=== PATIENT | male | born 1955 | race American Indian/Alaskan Native ===

== ENCOUNTER 2018-04-27 13:41 | Emergency (ER) | payer MEDICARE ==
[2018-04-27] MEDS ORDERED: MOTRIN PO ONE (15:56)
[2018-04-27] MEDS ORDERED: PERCOCET 5/325 PO ONE (15:56)
--- NOTE | 2018-04-27 16:31 | Emergency Department Report ---
ED Back Pain/Injury HPI - General Chief Complaint: Back Pain/Injury Stated Complaint: BACK PAIN Time Seen by Provider: 04/27/18 15:31 Source: patient, EMS Limitations: No Limitations - History of Present Illness Initial Comments: 62-year-old male past medical history drug abuse including cocaine and marijuana , diabetes, [place], hypertension, high cholesterol, sciatica, lower back surgery presents with complaint of lower back pain since yesterday. Patient states she suffers from chronic lower back pain but it worsened yesterday after he had a fall at home. Patient states he slipped and fell backward onto his lower back. Patient states pain is severe at this moment. Denies any bladder or bowel incontinence. Denies active illicit drug use. States the pain does radiate down his right leg intermittently. Patient states he had back surgery at [facility] in [place]. Complaint: back pain Onset/Timin -: days(s) Place: home Radiation: buttocks Severity: severe Severity scale (0 -10): 8 Quality: sharp, aching Consistency: constant Improves With: immobilization, supine Worsens With: movement Context: while lifting, turning/twisting, bending, fall Associated Symptoms: other (right lateral leg numbness reported by patient) - Related Data Allergies Allergy/AdvReac Type Severity Reaction Status Date / Time No Known Allergies Allergy Unverified 04/27/18 14:51 ED Review of Systems ROS: Stated complaint: BACK PAIN Other details as noted in HPI Constitutional: denies: chills, fever Eyes: denies: eye pain, eye discharge, vision change ENT: denies: ear pain, throat pain Respiratory: denies: cough, shortness of breath, wheezing Cardiovascular: denies: chest pain, palpitations Endocrine: no symptoms reported Gastrointestinal: denies: abdominal pain, nausea, diarrhea Genitourinary: denies: urgency, dysuria Musculoskeletal: back pain (chronic lower back pain). denies: joint swelling, arthralgia Skin: denies: rash, lesions Neurological: denies: headache, weakness, paresthesias Psychiatric: denies: anxiety, depression Hematological/Lymphatic: denies: easy bleeding, easy bruising ED Past Medical Hx - Past Medical History Previous Medical History?: Yes Hx Hypertension: Yes Hx Heart Attack/AMI: Yes Hx Diabetes: Yes Additional medical history: high cholesterol - Surgical History Past Surgical History?: Yes Additional Surgical History: Back surgery - Social History Smoking Status: Current Every Day Smoker Substance Use Type: Alcohol, Marijuana ED Physical Exam - General Limitations: No Limitations General appearance: alert, in no apparent distress - Head Head exam: Present: atraumatic, normocephalic - Eye Eye exam: Present: normal appearance, PERRL, EOMI - ENT ENT exam: Present: mucous membranes moist - Neck Neck exam: Present: normal inspection - Respiratory Respiratory exam: Present: normal lung sounds bilaterally. Absent: respiratory distress - Cardiovascular Cardiovascular Exam: Present: regular rate, normal rhythm. Absent: systolic murmur, diastolic murmur, rubs, gallop - GI/Abdominal GI/Abdominal exam: Present: soft, normal bowel sounds - Rectal Rectal exam: Present: deferred - Extremities Exam Extremities exam: Present: normal inspection - Back Exam Back exam: Present: normal inspection - Neurological Exam Neurological exam: Present: alert, oriented X3 - Expanded Neurological Exam Expanded Patient oriented to: Present: person, place, time Motor strength exam: RUE: 5, LUE: 5, RLE: 3, LLE: 5 Best Eye Response ([place]): (4) open spontaneously Best Motor Response ([place]): (6) obeys commands Best Verbal Response ([place]): (5) oriented Evangelist Total: 15 - Psychiatric Psychiatric exam: Present: normal affect, normal mood - Skin Skin exam: Present: warm, dry, intact, normal color. Absent: rash ED Course Vital Signs 04/27/18 04/27/18 14:51 17:53 Temperature 99 F 98 F Pulse Rate 78 69 Respiratory 20 16 Rate Blood Pressure 139/93 Blood Pressure 152/103 [Left] O2 Sat by Pulse 99 97 Oximetry ED Medical Decision Making - Medical Decision Making A/P: Lumbar compression fractures, acute fall injury 1-discussed with on-call [place] [facility] 1 patient to be transferred to [place] [facility] for evaluation by trauma team and neurosurgery case discussed with who accepted transfer 2-IV analgesia, nothing by mouth 3-case discussed with attending 4-patient in agreement with current clinical plan. Given nature of acute injury in context of fall with some neurological findings on exam patient must be evaluated by neurosurgery. Critical care attestation.: If time is entered above; I have spent that time in minutes in the direct care of this critically ill patient, excluding procedure time. ED Disposition Clinical Impression: Compression fracture of L2 lumbar vertebra Qualifiers: Encounter type: initial encounter Fracture type: closed Qualified Code(s): S32.020A - Wedge compression fracture of second lumbar vertebra, initial encounter for closed fracture Fall with significant injury Qualifiers: Encounter type: initial encounter Qualified Code(s): W19.XXXA - Unspecified fall, initial encounter Disposition: DC/TX-70 ANOTHER TYPE HLTHCARE Is pt being admited?: No Condition: Stable Referrals: PRIMARY CARE,MD [Primary Care Provider] - 3-5 Days
--- NOTE | 2018-04-27 17:10 | Cat Scan Report ---
FINAL REPORT EXAM: CT LUMBAR SPINE WO CON HISTORY: severe lower back pain s/p fall TECHNIQUE: CT of the lumbar spine was performed without intravenous contrast. Reconstruction were included in the coronal and sagittal planes. PRIORS: None. FINDINGS: There are five lumbar type vertebral bodies. Normal alignment. There recent compression fractures of the superior endplates of L2 and L3. There is 30 percent loss of height of both vertebral bodies. No retropulsion of fracture fragments. No spinal stenosis. No extension is seen into the posterior elements. The paravertebral soft tissues are normal. Posterior spinal fusion hardware is seen spanning L4 through S1. No evidence of hardware complication. Prior right L5 laminectomy is seen. L1/2: There is a small posterior disc bulge. No spinal canal stenosis. No neural foraminal narrowing. There is mild facet arthropathy. L2/3: There is a small diffuse posterior disc bulge. No spinal canal stenosis. No neural foraminal narrowing. There is mild facet arthropathy. L3/4: There is a mild diffuse posterior disc bulge. No spinal canal stenosis. No neural foraminal narrowing. There is moderate facet arthropathy. L4/5: There is a small posterior disc bulge with severe disc space loss. No spinal canal stenosis. No neural foraminal narrowing. There is mild facet arthropathy. L5/S1: There is severe disc space loss with a small posterior disc bulge. No spinal canal stenosis. There is mild to moderate bilateral neural foraminal narrowing. There is mild facet arthropathy. IMPRESSION: 1. Acute L2 and L3 compression fractures. Findings were discussed with Dr. Lee at 2:04 p.m. PST on 04/27/2018. 2. Intact L4 through S1 spinal fusion hardware. 3. Multilevel degenerative changes of the lumbar spine. Bilateral neural foraminal narrowing at L5-S1.
[2018-04-27] MEDS ORDERED: DILAUDID IM ONE (17:15)
[2018-04-27 17:53] VITALS: BP 152/103
[2018-04-27 17:57] LABS: Mucus,Urine FEW /HPF; WBC,Urine < 1.0 /HPF (0.0-6.0)
[2018-04-27 17:58] LABS: Bilirubin,Urine NEG (Negative); Blood,Urine NEG (Negative); Color,Urine Yellow (Yellow); Protein,Urine <15 mg/dL mg/dL (Negative); Urobilinogen,Urine < 2.0 mg/dL (<2.0)
[2018-04-27 18:19] LABS: Amphetamine Screen,Urine PRESUMPTIVE NEGATIVE; Benzodiazepines Screen,Urine PRESUMPTIVE NEGATIVE; Cannabinoid Screen,Urine PRESUMPTIVE NEGATIVE; Methadone Screen,Urine PRESUMPTIVE NEGATIVE; Opiate Screen,Urine PRESUMPTIVE NEGATIVE
[2018-04-27 18:30] LABS: Cocaine Screen,Urine PRESUMPTIVE POSITIVE
[2018-04-27] MEDS ORDERED: ZOFRAN ONE (18:43)
[2018-04-27] MEDS ORDERED: ZOFRAN IV ONE (18:54)
[2018-04-27] MEDS ORDERED: DILAUDID IV ONE (18:54)
[2018-04-27] MEDS ORDERED: NACL 0.9% 1000 ML 1,000 ML IV ONE (18:58)
[2018-04-27] MEDS ORDERED: D5NS 1,000 ML IV SCH (19:00)
[2018-04-27] MEDS ORDERED: D5NS 500 ML IV SCH (20:00)
== END 2018-04-27 19:49 | disposition other institution (70) ==
LOC: ED 13:41
DX: S32.020A Wedge compression fracture of second lumbar vertebra, initial encounter for closed fracture (principal); I10 Essential (primary) hypertension; I25.2 Old myocardial infarction; E11.9 Type 2 diabetes mellitus without complications; E78.00 Pure hypercholesterolemia, unspecified; F17.200 Nicotine dependence, unspecified, uncomplicated; F12.90 Cannabis use, unspecified, uncomplicated; W19.XXXA Unspecified fall, initial encounter; Y93.89 Activity, other specified; Y99.8 Other external cause status; Y92.009 Unspecified place in unspecified non-institutional (private) residence as the place of occurrence of the external cause
CPT/HCPCS: 72131; 80307; 81001; 82962; 96372; 96374; 96375; 99285; J1170; J2405

== ENCOUNTER 2018-05-15 16:08 | Emergency (ER) | payer MEDICARE ==
[2018-05-15 16:22] VITALS: BP 131/70
[2018-05-15] MEDS ORDERED: TORADOL IM ONE (17:10)
--- NOTE | 2018-05-15 17:13 | Emergency Department Report ---
ED Back Pain/Injury HPI - General Chief Complaint: Back Pain/Injury Stated Complaint: BACK PAIN FOR 3 WEEKS Time Seen by Provider: 05/15/18 17:05 Source: patient, EMS Limitations: No Limitations - History of Present Illness Initial Comments: Patient is a 62-year-old [place] male who is 3 weeks status post a fall with back fracture. Patient was transferred to [place] because of the possibility of spinal cord involvement however the patient did not need surgery on further evaluation. Patient still has significant pain his run out of his pain medicines. Patient is to see pain management in 3 days. Patient states pain is in the lower back with no radiation. Patient denies any bowel or bladder dysfunction at this time. Persistent pain is 10 out of 10. - Related Data Previous Rx's Medication Instructions Recorded Last Taken Type HYDROcodone/APAP 5-325 [[place] 1 each PO Q4HR PRN #12 tablet 05/15/18 Unknown Rx 5/325] Ibuprofen [Motrin] 800 mg PO Q8HR PRN #20 tablet 05/15/18 Unknown Rx methOCARBAMOL [Robaxin TAB] 500 mg PO Q6H PRN #15 tablet 05/15/18 Unknown Rx Allergies Allergy/AdvReac Type Severity Reaction Status Date / Time No Known Allergies Allergy Unverified 04/27/18 14:51 ED Review of Systems ROS: Stated complaint: BACK PAIN FOR 3 WEEKS Other details as noted in HPI Comment: All other systems reviewed and negative ED Past Medical Hx - Past Medical History high cholesterol, Chronic back pain ED Back Pain Physical Exam - Exam General: Vital signs noted. No distress. Alert and acting appropriately. Back/Abdomen: Yes Perilumbar Tenderness, No Abdominal Tenderness, No Perithoracic Tenderness, No Sacroiliac Tenderness, No Flank Tenderness, No Straight Leg Raise Pain Neuro: Yes Normal Sensation, Yes Normal DTR's, Yes Normal Gait, No Motor Weakness ED Course Vital Signs 05/15/18 16:18 Temperature 98.4 F Pulse Rate 72 Respiratory 20 Rate Blood Pressure 131/70 O2 Sat by Pulse 99 Oximetry Critical care attestation.: If time is entered above; I have spent that time in minutes in the direct care of this critically ill patient, excluding procedure time. ED Disposition Clinical Impression: Back pain Qualifiers: Back pain location: low back pain Chronicity: unspecified Back pain laterality : unspecified Sciatica presence: unspecified whether sciatica present Qualified Code(s): M54.5 - Low back pain Disposition: DC-01 TO HOME OR SELFCARE Is pt being admited?: No Does the pt Need Aspirin: No Condition: Stable Instructions: Back Pain (ED) Referrals: PRIMARY CARE, [Primary Care Provider] - 3-5 Days
== END 2018-05-15 17:55 | disposition home or self-care (01) ==
LOC: ED 16:08
DX: M54.5 Low back pain (principal); G89.29 Other chronic pain
CPT/HCPCS: 96372; 99283; J1885

== ENCOUNTER 2018-05-19 10:31 | Emergency (ER) | payer MEDICARE ==
[2018-05-19 10:53] VITALS: BP 159/78
--- NOTE | 2018-05-19 11:57 | Emergency Department Report ---
ED Back Pain/Injury HPI - General Chief Complaint: Back Pain/Injury Stated Complaint: BACK PAIN Time Seen by Provider: 05/19/18 11:28 Source: patient Limitations: No Limitations - History of Present Illness Initial Comments: Patient is a [id number] male who is actually one month status post back injury has returned to the emergency department now for the third time for medication refill. Patient on his last visit was given 6 Vicodin but told that he needed to follow-up with either pain clinic or primary care for any additional medication refills. Patient states his lower lumbar back pain. Hurts worse when he moves. Patient denies any fevers chills nausea vomiting or bowel or bladder dysfunction. - Related Data Previous Rx's Medication Instructions Recorded Last Taken Type HYDROcodone/APAP 5-325 [[place] 1 each PO Q4HR PRN #12 tablet 05/15/18 Unknown Rx 5/325] methOCARBAMOL [Robaxin TAB] 500 mg PO Q6H PRN #15 tablet 05/15/18 Unknown Rx Ibuprofen [Motrin 800 MG tab] 800 mg PO Q8HR PRN #10 tablet 05/19/18 Unknown Rx Allergies Allergy/AdvReac Type Severity Reaction Status Date / Time No Known Allergies Allergy Verified 05/19/18 10:49 ED Review of Systems ROS: Stated complaint: BACK PAIN Other details as noted in HPI Comment: All other systems reviewed and negative ED Past Medical Hx - Past Medical History high cholesterol, Chronic back pain ED Back Pain Physical Exam - Exam General: Vital signs noted. No distress. Alert and acting appropriately. Back/Abdomen: Yes Perilumbar Tenderness, No Abdominal Tenderness, No Perithoracic Tenderness, No Sacroiliac Tenderness, No Flank Tenderness, No Straight Leg Raise Pain Neuro: Yes Normal Sensation, Yes Normal DTR's, Yes Normal Gait, No Motor Weakness ED Course Vital Signs 05/19/18 10:50 Temperature 97.7 F Pulse Rate 82 Respiratory 18 Rate Blood Pressure 159/78 O2 Sat by Pulse 100 Oximetry ED Medical Decision Making - Medical Decision Making Patient has not medical emergency. Patient does have Medicaid and with a period patient will be referred to us at medical clinic for further care. Patient was given some Motrin today. Critical care attestation.: If time is entered above; I have spent that time in minutes in the direct care of this critically ill patient, excluding procedure time. ED Disposition Clinical Impression: Chronic back pain Qualifiers: Back pain location: low back pain Back pain laterality: unspecified Sciatica presence: without sciatica Qualified Code(s): M54.5 - Low back pain; G89.29 - Other chronic pain Disposition: TO HOME OR SELFCARE Is pt being admited?: No Does the pt Need Aspirin: No Condition: Stable Prescriptions: Ibuprofen [Motrin 800 MG tab] 800 mg PO Q8HR PRN #10 tablet PRN Reason: Pain Referrals: [facility] [Other] - 3-5 Days
== END 2018-05-19 12:09 | disposition home or self-care (01) ==
LOC: ED 10:31
DX: G89.29 Other chronic pain (principal); M54.9 Dorsalgia, unspecified
CPT/HCPCS: 99282